=== PATIENT | male | born 1960 | race Caucasian/White ===

== ENCOUNTER 2017-05-17 19:18 | Emergency (ER) | payer OTHER ==
[~2017-05-17] VITALS: Ht 177.8 cm; Wt 78.0 kg
[2017-05-17 19:21] VITALS: BP 134/84; PULSE 70; RESP 15; TEMP 98.6; O2SAT 98
--- NOTE | 2017-05-17 19:39 | PD ---
HPI Chief Complaint: Bite or Sting Time Seen by Provider: 19:38 Travel History International Travel<30 days: No Contact w/Intl Traveler<30days: No Traveled to known affect area: No History of Present Illness HPI 57-year-old male presents the emergency department with history of some bug bites along the right medial posterior elbow is able days ago. Patient noticed some increased swelling, itchiness, erythema, and mild discomfort which is worsened in the past 24 hours. Patient denies fever, chills , or drainage. He has no history of MRSA in the past. 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 Patient denies decreased range of motion or strength. He denies numbness or tingling. He has no known drug allergies. PFSH Past Medical History Hx Anticoagulant Therapy: Yes Cancer: Yes (LYMPHOMA, MELANOMA) Cardiovascular Problems: Yes (HTN) Diminished Hearing: No Hypertension: Yes Tetanus Vaccination: < 5 Years Influenza Vaccination: Yes Past Surgical History Abdominal Surgery: Yes (SPLENECTOMY, CANCEROUS STOMACH TUMOR REMOVAL) Social History Alcohol Use: No Tobacco Use: Yes (1 PPD) Substance Use: No Allergies-Medications (Allergen,Severity, Reaction): Coded Allergies: No Known Allergies (Unverified , 05/17/17) Review of Systems Except as stated in HPI: all other systems reviewed are Neg General / Constitutional: No: Fever Eyes: No: Visual changes HENT: No: Headaches Cardiovascular: No: Chest Pain or Discomfort Respiratory: No: Shortness of Breath Gastrointestinal: No: Abdominal Pain Genitourinary: No: Dysuria Musculoskeletal: No: Pain Skin: Positive Lesions (the history present illness.), No Rash Neurologic: No: Weakness Psychiatric: No: Depression Endocrine: No: Polydipsia Hematologic/Lymphatic: No: Easy Bruising Physical Exam Narrative GENERAL: Patient is in no acute distress. SKIN: Warm and dry. Normal color. Normal turgor. Patient has 3 old insect bite appearing lesions to the medial right posterior elbow with localized swelling and erythema and induration. There is no obvious palpable abscess. Range of motion is full. There is no pointing. There is no lymphangitis or proximal streaking. HEAD: Atraumatic. Normocephalic. EYES: Pupils equal and round. No scleral icterus. No injection or drainage. ENT: No nasal bleeding or discharge. Mucous membranes pink and moist. Pharynx is clear. Airway is patent. NECK: Trachea midline. Supple. CARDIOVASCULAR: Regular rate and rhythm. RESPIRATORY: No accessory muscle use. Clear to auscultation. Breath sounds equal bilaterally. MUSCULOSKELETAL: Extremities without clubbing, cyanosis, or edema. No obvious deformities. Patient is induration and swelling over the right olecranon and proximal forearm. See SKIN. NEUROLOGICAL: Awake and alert. No obvious cranial nerve deficits. Motor grossly within normal limits. Five out of 5 muscle strength in the arms and legs. Normal speech. PSYCHIATRIC: Appropriate mood and affect; insight and judgment normal. Data Data Last Documented VS Vital Signs Date Time Temp Pulse Resp B/P (MAP) Pulse Ox O2 Delivery O2 Flow Rate FiO2 05/17/17 19:21 98.6 70 15 134/84 (101) 98 Room Air MDM Medical Decision Making Medical Screen Exam Complete: Yes Emergency Medical Condition: Yes Differential Diagnosis Insect bite. Cellulitis. Possible olecranon bursitis. Possible Early abscess. Narrative Course Patient is medically stable at this time. Based on my history and physical is do not feel I&D of this area would be appropriate at this time. Patient is given Bactrim DS by mouth 1. Patient will be continued on Bactrim DS twice a day 10 days. Patient is to use warm compresses followed by ice to the area. Patient can take ibuprofen as needed for swelling and discomfort. Patient should follow up with symptoms do not improve over the next 24-48 hours as discussed. Diagnosis Primary Impression: Infected insect bite of right elbow Qualified Codes: S50.361A - Insect bite (nonvenomous) of right elbow, initial encounter; L08.9 - Local infection of the skin and subcutaneous tissue, unspecified; W57.XXXA - Bitten or stung by nonvenomous insect and other nonvenomous arthropods, initial encounter Patient Instructions: Cellulitis (ED), General Instructions, Insect Bite or Sting (ED) Additional Instructions: Based on my history and physical is do not feel I&D of this area would be appropriate at this time. Patient is given Bactrim DS by mouth 1. Patient will be continued on Bactrim DS twice a day 10 days. Patient is to use warm compresses followed by ice to the area. Patient can take ibuprofen as needed for swelling and discomfort. Patient should follow up with symptoms do not improve over the next 24-48 hours as discussed. Med/Other Pt SpecificInfo: Prescription(s) given Disposition: 01 DISCHARGE HOME Condition: Stable All Holman May 17, 2017 19:39
[2017-05-17] MEDS ORDERED: SULFAMETHOXAZOLE-TRIMETHOPRIM DS 800-160 MG TAB PO ONE (20:00)
[2017-05-17] MEDS ORDERED: BACT800T5 PO (20:03)
== END 2017-05-17 20:32 | disposition home or self-care (01) ==
LOC: NEPC 19:18
DX: S50.361A Insect bite (nonvenomous) of right elbow, initial encounter (principal); L08.9 Local infection of the skin and subcutaneous tissue, unspecified; W57.XXXA Bitten or stung by nonvenomous insect and other nonvenomous arthropods, initial encounter
CPT/HCPCS: 99283

== ENCOUNTER 2017-05-20 11:38 | Emergency (ER) | payer OTHER ==
[~2017-05-20] VITALS: Ht 182.9 cm; Wt 78.5 kg
[~2017-05-20 11:38] MED LIST: BACT800T5 PO
[2017-05-20 11:39] VITALS: BP 125/79; PULSE 87; RESP 16; TEMP 98.6; O2SAT 97
--- NOTE | 2017-05-20 12:14 | PD ---
HPI Chief Complaint: Bite or Sting Time Seen by Provider: 12:14 Travel History International Travel<30 days: No Contact w/Intl Traveler<30days: No Traveled to known affect area: No History of Present Illness HPI 57-year-old male with history of non-Hodgkin's lymphoma, currently in remission , presents to emergency department for evaluation of worsening right upper extremity redness and swelling. Patient was seen and evaluated 3 days ago, started on Bactrim for a possible cellulitis. He states he has been taking this but his symptoms have not significantly improved, but they are not significantly worse either. Patient reports his report being in the right subclavian on the right side, he is concerned about that being a reason for his arm being swollen. He denies any significant pain but states he is "aware of the arm." Denies any fever or chills. No other symptoms to report. PFSH Past Medical History Hx Anticoagulant Therapy: Yes (XERELTO) Cancer: Yes (LYMPHOMA, MELANOMA) Cardiovascular Problems: Yes (HTN) Chemotherapy: Yes (2014) Diminished Hearing: No Hypertension: Yes ?: Not Past Surgical History Abdominal Surgery: Yes (SPLENECTOMY, CANCEROUS STOMACH TUMOR REMOVAL) Social History Alcohol Use: No Tobacco Use: Yes (1 PPD) Substance Use: No Allergies-Medications (Allergen,Severity, Reaction): Coded Allergies: No Known Allergies (Unverified , 05/20/17) Reported Meds & Prescriptions Reported Meds & Active Scripts Active Bactrim DS (Sulfamethoxazole-Trimethoprim) 800-160 Mg Tab 1 Tab PO BID Review of Systems Except as stated in HPI: all other systems reviewed are Neg Physical Exam Narrative GENERAL: Well-nourished male patient, in no acute distress SKIN: Focused skin assessment warm/dry. HEAD: Atraumatic. Normocephalic. EYES: Pupils equal and round. No scleral icterus. No injection or drainage. ENT: No nasal bleeding or discharge. Mucous membranes pink and moist. NECK: Trachea midline. No JVD. CARDIOVASCULAR: Regular rate and rhythm. No murmur appreciated. RESPIRATORY: No accessory muscle use. Clear to auscultation. Breath sounds equal bilaterally. GASTROINTESTINAL: Abdomen soft, non-tender, nondistended. Hepatic and splenic margins not palpable. MUSCULOSKELETAL: No obvious deformities. No clubbing. No cyanosis. Moderate edema of the right upper extremity with associated erythema extending on the posterior lateral from the wrist to the axilla. Distal pulses are palpable. Cap refill is within normal limits. NEUROLOGICAL: Awake and alert. No obvious cranial nerve deficits. Motor grossly within normal limits. Normal speech. PSYCHIATRIC: Appropriate mood and affect; insight and judgment normal. Data Data Last Documented VS Vital Signs Date Time Temp Pulse Resp B/P (MAP) Pulse Ox O2 Delivery O2 Flow Rate FiO2 05/20/17 11:39 98.6 87 16 125/79 (94) 97 Orders Orders Us Arm Venous Doppler (05/20/17 ) MDM Medical Decision Making Medical Screen Exam Complete: Yes Emergency Medical Condition: Yes Medical Record Reviewed: Yes Differential Diagnosis Cellulitis versus local reaction versus DVT versus lymphedema Narrative Course 57-year-old male presents to the emergency department for evaluation of right upper extremity swelling. Patient appears without distress. His vital signs are stable. He is afebrile. Ultrasound was ordered of the right upper extremity for evaluation of possible DVT. 1315 ultrasound results normal examination. Patient be discharged home to continue oral antibiotic. He is encouraged to follow-up with his primary care provider and return immediately with any acute worsening symptoms. Diagnosis Primary Impression: Right arm cellulitis Referrals: Primary Care Physician Patient Instructions: Cellulitis (ED), General Instructions Additional Instructions: Elevate to reduce pain and swelling Follow-up with your primary care provider Continue antibiotics Bactrim. Will add Keflex to your regimen. Return immediately with any acute worsening symptoms Med/Other Pt SpecificInfo: Prescription(s) given Scripts Cephalexin (Keflex) 500 Mg Cap 500 MG PO Q6H for Infection for 5 Days, CAP 0 Refills Prov: Luna Almendarez 05/20/17 Disposition: 01 DISCHARGE HOME Condition: Stable Luna Almendarez May 20, 2017 12:14
--- NOTE | 2017-05-20 13:14 | RADRPT ---
EXAM DATE/TIME: 05/20/2017 12:40 [facility] COMPARISON: No previous studies available for comparison. INDICATIONS : Right arm swelling. MEDICAL HISTORY : Hypertension. Anticoagulant therapy. Lymphoma. Melanoma. Chemotherapy. SURGICAL HISTORY : Splenectomy. Cancerous stomach tumor removed. ENCOUNTER: Initial ACUITY: 3 days PAIN SCORE: 1/10 LOCATION: Right arm FINDINGS: There is spontaneous flow documented in the brachial, basilic, cephalic, axillary, and subclavian vei ns. The vessels are compressible and augmentation response is documented. No filling defects are se en. The flow is phasic with respiration. Direction of flow in the jugular vein is caudal. CONCLUSION: Normal examination. Kirill Dixon Jr., MD on May 20, 2017 at 13:07 Board Certified Radiologist. This report was verified electronically.
[2017-05-20] MEDS ORDERED: CEPH-460 PO (13:19)
== END 2017-05-20 14:00 | disposition home or self-care (01) ==
LOC: EDTENT 11:38
DX: L03.113 Cellulitis of right upper limb (principal); F17.200 Nicotine dependence, unspecified, uncomplicated; I10 Essential (primary) hypertension; Z85.72 Personal history of non-Hodgkin lymphomas; Z85.820 Personal history of malignant melanoma of skin
CPT/HCPCS: 93971; 99284